=== PATIENT | male | born 1935 | race Caucasian/White ===

== ENCOUNTER 2021-05-08 12:36 | Inpatient (IN) | payer OTHER ==
[2021-05-08 12:51] VITALS: BMI 22.1
[2021-05-08 13:34] LABS: BASO % 0.8 % (0-2.0); EOS % 1.9 % (0-4.5); HEMATOCRIT 30.8 % (35.4-49); HEMOGLOBIN 9.7 GM/dL (11.7-16.9); LYMPH % 8.4 % (8-40); MCHC 31.5 g/dl (32.0-35.9); MEAN CELL VOLUME 95.3 fl (80-96); MEAN PLT VOLUME 9.8 fl (7.5-11.1); MONO % 5.9 % (3.8-10.2); PLATELET COUNT 292 10^3/uL (134-434); RBC 3.23 M/mm3 (4.00-5.60); RDW 17.2 % (11.9-15.9)
[2021-05-08 13:40] LABS: VENOUS PCO2 43.1 mmHg (38-52); VENOUS PH 7.354 (7.310-7.410)
[2021-05-08 13:47] LABS: INR 0.97 (0.83-1.09); PROTHROMBIN TIME (PATIENT) 11.8 SEC (9.7-13.0)
[2021-05-08 13:50] LABS: ACTIVATED PTT 31.8 SECONDS (25.2-36.5)
[2021-05-08 13:51] LABS: CHLORIDE 119 mmol/L (98-107); SODIUM 149 mmol/L (136-145)
[2021-05-08 13:53] LABS: ALBUMIN 2.6 g/dl (3.4-5.0); ANION GAP 3 MMOL/L (8-16); BLOOD UREA NITROGEN 29.5 mg/dL (7-18); CALCIUM 10.4 mg/dL (8.5-10.1); CO2 27 mmol/L (21-32); GLUCOSE,RANDOM 117 mg/dL (74-106)
[2021-05-08 13:57] LABS: CREATININE 1.2 mg/dL (0.55-1.3); SGOT/AST 23 U/L (15-37)
[2021-05-08 13:58] LABS: BILIRUBIN,TOTAL 0.2 mg/dL (0.2-1); TOT PROT 6.2 g/dl (6.4-8.2)
[2021-05-08 13:59] LABS: ALK PHOS 120 U/L (45-117)
[2021-05-08 14:33] LABS: SGPT/ALT 7 U/L (13-61)
[2021-05-08 16:58] LABS: EPI CELLS >36 /uL (0-25.1); HYALINE CASTS 3 /uL (0-3.1); URINE APPEARANCE CLEAR; URINE BACTERIA 85 /uL (0-1359); URINE BILIRUBIN NEGATIVE (NEGATIVE); URINE COLOR YELLOW; URINE GLUCOSE (UA) NEGATIVE (NEGATIVE); URINE KETONE NEGATIVE (NEGATIVE); URINE LEUK ESTERASE 1+ (NEGATIVE); URINE NITRITE NEGATIVE (NEGATIVE); URINE PROTEIN NEGATIVE (NEGATIVE); URINE RBC 10 /uL (0-23.9); URINE WBC 33 /uL (0-25.8)
[2021-05-08] MEDS ORDERED: DEXTROSE 5%-WATER - 1,000 ML IV SCH (20:15)
[2021-05-09] MEDS ORDERED: CARBIDOPA/LEVODOPA 25/100 TABLET (FP) PEG SCH (06:00)
[2021-05-09] MEDS ORDERED: ALBUTEROL SO4 0.083% IH SOL 2.5 MG/3 ML VIAL.NEB. NEB PRN (06:07)
[2021-05-09] MEDS ORDERED: LEVOTHYROXINE NA 50 MCG TABLET (FP) PO SCH (07:00)
[2021-05-09 08:08] LABS: BASO % 1.1 % (0-2.0); HEMATOCRIT 32.6 % (35.4-49); HEMOGLOBIN 10.2 GM/dL (11.7-16.9); LYMPH % 7.3 % (8-40); MCH 29.7 pg (25.7-33.7); MCHC 31.2 g/dl (32.0-35.9); MEAN CELL VOLUME 95.2 fl (80-96); MEAN PLT VOLUME 9.6 fl (7.5-11.1); MONO % 5.7 % (3.8-10.2); NEUT % 83.9 % (42.8-82.8); PLATELET COUNT 352 10^3/uL (134-434); RBC 3.42 M/mm3 (4.00-5.60); RDW 17.1 % (11.9-15.9); WHITE BLOOD COUNT 11.3 K/mm3 (4.0-10.0)
[2021-05-09 08:35] LABS: CALCIUM 11.1 mg/dL (8.5-10.1)
[2021-05-09 08:36] LABS: ALBUMIN 3.1 g/dl (3.4-5.0); BLOOD UREA NITROGEN 23.4 mg/dL (7-18); MAGNESIUM 2.7 mg/dL (1.8-2.4)
[2021-05-09 08:39] LABS: CREATININE 0.9 mg/dL (0.55-1.3)
[2021-05-09 08:40] LABS: BILIRUBIN,TOTAL 0.3 mg/dL (0.2-1)
[2021-05-09] MEDS: HEPARIN NA (PORCINE) 5,000 UNITS/ML 1ML VIAL SQ SCH ×2 (09:33→22:13)
[2021-05-09] MEDS ORDERED: carBAMazepine 100 MG TAB.CHEW PEG SCH (10:00)
[2021-05-09] MEDS ORDERED: DOCUSATE NA 100 MG/10 ML UNIT-DOSE CUPS PEG SCH (10:00)
[2021-05-09] MEDS ORDERED: AZITHROMYCIN IVPB 500 MG in DEXTROSE 5%-WATER - 250 ML IVPB SCH (10:30)
[2021-05-09] MEDS ORDERED: ACETAMINOPHEN 1000 MG/100 ML VIAL (NON FORMULARY) IVPB PRN (10:39)
[2021-05-09] MEDS ORDERED: DEXTROSE 5%-WATER - 1,000 ML IV SCH (10:46)
[2021-05-09] MEDS ORDERED: cefTRIAXone SODIUM 1 GM VIAL ONE (11:06)
[2021-05-09] MEDS ORDERED: DEXTROSE 5%-WATER - 50 ML IVPB ONE (11:06)
[2021-05-09] MEDS: CEFTRIAXONE 1 GM in DEXTROSE 5%-WATER - 50 ML IVPB SCH (11:32)
[2021-05-09] MEDS: AZITHROMYCIN IVPB 500 MG/250 ML BAG IVPB SCH (11:33)
[2021-05-09] MEDS ORDERED: DEXTROSE 5%-WATER - 1,000 ML IV ONE (12:30)
[2021-05-09] MEDS ORDERED: QUEtiapine FUMARATE 100 MG TABLET (FP) PEG SCH (14:00)
[2021-05-09] MEDS: ALBUTEROL SO4 2.5/IPRATROPIUM 0.5 INH SOL 3 ML VIAL.NEB. NEB SCH ×3 (15:04→21:05)
[2021-05-09] MEDS ORDERED: QUEtiapine FUMARATE 100 MG TABLET (FP) PEG ONE (21:23)
[2021-05-09] MEDS ORDERED: QUEtiapine FUMARATE 50 MG TABLET ONE (22:11)
[2021-05-09] MEDS: DEXTROSE 5%-WATER - 1,000 ML IV SCH (22:24)
[2021-05-10] MEDS: DEXTROSE 5%-WATER - 1,000 ML IV SCH ×2 (06:35→21:28)
[2021-05-10] MEDS: ALBUTEROL SO4 2.5/IPRATROPIUM 0.5 INH SOL 3 ML VIAL.NEB. NEB SCH ×4 (07:26→20:18)
[2021-05-10] MEDS ORDERED: cefTRIAXone SODIUM 1 GM VIAL ONE (08:59)
[2021-05-10] MEDS ORDERED: DEXTROSE 5%-WATER - 50 ML IVPB ONE (08:59)
[2021-05-10] MEDS: HEPARIN NA (PORCINE) 5,000 UNITS/ML 1ML VIAL SQ SCH ×2 (09:05→21:25)
[2021-05-10] MEDS: CEFTRIAXONE 1 GM in DEXTROSE 5%-WATER - 50 ML IVPB SCH (09:09)
[2021-05-10] MEDS: AZITHROMYCIN IVPB 500 MG/250 ML BAG IVPB SCH (09:11)
[2021-05-10] MEDS ORDERED: ACETAMINOPHEN 325 MG TABLET (FP) NR PRN (09:37)
[2021-05-10] MEDS ORDERED: LEVOTHYROXINE SODIUM 100 MCG VIAL IVPUSH SCH (10:00)
[2021-05-10] MEDS ORDERED: LITHIUM CARBONATE 300 MG CAPSULE PO SCH (10:00)
[2021-05-10] MEDS: MULTIVIT-MINERALS ORAL LIQUID PEG SCH (10:43)
[2021-05-10] MEDS: FAMOTIDINE 40 MG/5 ML ORAL SUSPENSION PEG SCH (10:43)
[2021-05-10] MEDS: LOSARTAN POTASSIUM 50 MG TABLET PEG SCH (10:54)
[2021-05-10 11:49] LABS: BASO % 0.9 % (0-2.0); EOS % 3.1 % (0-4.5); HEMATOCRIT 33.7 % (35.4-49); HEMOGLOBIN 10.7 GM/dL (11.7-16.9); LYMPH % 17.7 % (8-40); MCH 30.1 pg (25.7-33.7); MCHC 31.7 g/dl (32.0-35.9); MEAN CELL VOLUME 94.9 fl (80-96); MEAN PLT VOLUME 9.4 fl (7.5-11.1); MONO % 6.4 % (3.8-10.2); NEUT % 71.9 % (42.8-82.8); PLATELET COUNT 266 10^3/uL (134-434); RBC 3.55 M/mm3 (4.00-5.60); RDW 16.9 % (11.9-15.9); WHITE BLOOD COUNT 6.9 K/mm3 (4.0-10.0)
[2021-05-10 12:13] LABS: CALCIUM 11.1 mg/dL (8.5-10.1)
[2021-05-10 12:14] LABS: BLOOD UREA NITROGEN 12.6 mg/dL (7-18)
[2021-05-10 12:17] LABS: CREATININE 0.7 mg/dL (0.55-1.3)
[2021-05-10 12:19] LABS: BILIRUBIN,TOTAL 0.2 mg/dL (0.2-1); TOT PROT 6.8 g/dl (6.4-8.2)
[2021-05-10] MEDS: CARBIDOPA/LEVODOPA 25/100 TABLET (FP) PEG SCH ×2 (13:45→21:27)
[2021-05-11] MEDS: LEVOTHYROXINE NA 50 MCG TABLET (FP) PEG SCH (06:17)
[2021-05-11] MEDS: CARBIDOPA/LEVODOPA 25/100 TABLET (FP) PEG SCH ×3 (06:18→21:03)
[2021-05-11 07:39] LABS: ALBUMIN 2.8 g/dl (3.4-5.0); BLOOD UREA NITROGEN 9.8 mg/dL (7-18); CALCIUM 10.5 mg/dL (8.5-10.1)
[2021-05-11 07:43] LABS: CREATININE 0.6 mg/dL (0.55-1.3)
[2021-05-11 07:44] LABS: BASO % 0.7 % (0-2.0); BILIRUBIN,TOTAL 0.2 mg/dL (0.2-1); EOS % 1.6 % (0-4.5); LYMPH % 9.8 % (8-40); MCH 30.1 pg (25.7-33.7); MCHC 32.1 g/dl (32.0-35.9); MEAN CELL VOLUME 93.9 fl (80-96); MEAN PLT VOLUME 9.7 fl (7.5-11.1); MONO % 5.7 % (3.8-10.2); NEUT % 82.2 % (42.8-82.8); PLATELET COUNT 271 10^3/uL (134-434); RBC 3.31 M/mm3 (4.00-5.60); RDW 16.5 % (11.9-15.9); TOT PROT 6.5 g/dl (6.4-8.2); WHITE BLOOD COUNT 9.6 K/mm3 (4.0-10.0)
[2021-05-11] MEDS ORDERED: POTASSIUM CHLORIDE TABS 10 MEQ TABLET.ER (FP) PO ONE (08:02)
[2021-05-11] MEDS: ALBUTEROL SO4 2.5/IPRATROPIUM 0.5 INH SOL 3 ML VIAL.NEB. NEB SCH ×4 (08:10→20:18)
[2021-05-11] MEDS ORDERED: DEXTROSE 5%-WATER - 50 ML IVPB ONE (08:45)
[2021-05-11] MEDS ORDERED: cefTRIAXone SODIUM 1 GM VIAL ONE (08:45)
[2021-05-11] MEDS: CEFTRIAXONE 1 GM in DEXTROSE 5%-WATER - 50 ML IVPB SCH (09:26)
[2021-05-11] MEDS: FAMOTIDINE 40 MG/5 ML ORAL SUSPENSION PEG SCH (09:26)
[2021-05-11] MEDS: MULTIVIT-MINERALS ORAL LIQUID PEG SCH (09:27)
[2021-05-11] MEDS: HEPARIN NA (PORCINE) 5,000 UNITS/ML 1ML VIAL SQ SCH ×2 (09:27→21:03)
[2021-05-11] MEDS: LOSARTAN POTASSIUM 50 MG TABLET PEG SCH (09:27)
[2021-05-11] MEDS: LITHIUM CARBONATE 300 MG CAPSULE PEG SCH (09:27)
[2021-05-11] MEDS: DEXTROSE 5%-WATER - 1,000 ML IV SCH (09:53)
[2021-05-12] MEDS: CARBIDOPA/LEVODOPA 25/100 TABLET (FP) PEG SCH ×3 (05:54→22:22)
[2021-05-12] MEDS: LEVOTHYROXINE NA 50 MCG TABLET (FP) PEG SCH (06:02)
[2021-05-12 07:32] LABS: BASO % 0.4 % (0-2.0); EOS % 2.3 % (0-4.5); HEMATOCRIT 33.4 % (35.4-49); HEMOGLOBIN 10.9 GM/dL (11.7-16.9); MCH 30.2 pg (25.7-33.7); MCHC 32.6 g/dl (32.0-35.9); MEAN CELL VOLUME 92.7 fl (80-96); MEAN PLT VOLUME 8.9 fl (7.5-11.1); MONO % 6.7 % (3.8-10.2); NEUT % 77.6 % (42.8-82.8); PLATELET COUNT 262 10^3/uL (134-434); RBC 3.61 M/mm3 (4.00-5.60); RDW 16.8 % (11.9-15.9); WHITE BLOOD COUNT 8.1 K/mm3 (4.0-10.0)
[2021-05-12] MEDS: ALBUTEROL SO4 2.5/IPRATROPIUM 0.5 INH SOL 3 ML VIAL.NEB. NEB SCH ×4 (07:50→20:15)
[2021-05-12 08:14] LABS: CALCIUM 10.7 mg/dL (8.5-10.1)
[2021-05-12 08:15] LABS: ALBUMIN 2.8 g/dl (3.4-5.0); BLOOD UREA NITROGEN 8.3 mg/dL (7-18)
[2021-05-12 08:18] LABS: CREATININE 0.6 mg/dL (0.55-1.3)
[2021-05-12 08:19] LABS: BILIRUBIN,TOTAL 0.4 mg/dL (0.2-1)
[2021-05-12 08:20] LABS: TOT PROT 6.7 g/dl (6.4-8.2)
[2021-05-12] MEDS ORDERED: DEXTROSE 5%-WATER - 50 ML IVPB ONE (09:05)
[2021-05-12] MEDS ORDERED: PT OWN MED DRAWER 7, Y5N ONE (09:05)
[2021-05-12] MEDS ORDERED: cefTRIAXone SODIUM 1 GM VIAL ONE (09:05)
[2021-05-12] MEDS: ACETAMINOPHEN 650 MG/20.3 ML ORAL SOLUTION (CUPS) GT PRN (09:14)
[2021-05-12] MEDS: LOSARTAN POTASSIUM 50 MG TABLET PEG SCH (09:14)
[2021-05-12] MEDS: MULTIVIT-MINERALS ORAL LIQUID PEG SCH (09:15)
[2021-05-12] MEDS: HEPARIN NA (PORCINE) 5,000 UNITS/ML 1ML VIAL SQ SCH ×2 (09:15→22:23)
[2021-05-12] MEDS: FAMOTIDINE 40 MG/5 ML ORAL SUSPENSION PEG SCH (09:15)
[2021-05-12] MEDS: CEFTRIAXONE 1 GM in DEXTROSE 5%-WATER - 50 ML IVPB SCH (09:16)
[2021-05-12] MEDS: VANCOMYCIN 1 GRAM (PRE-DOCKED) 1,000 MG/250 ML BAG IVPB SCH (22:21)
[2021-05-13] MEDS: LEVOTHYROXINE NA 50 MCG TABLET (FP) PEG SCH (06:31)
[2021-05-13] MEDS: CARBIDOPA/LEVODOPA 25/100 TABLET (FP) PEG SCH ×3 (06:31→21:07)
[2021-05-13] MEDS: ALBUTEROL SO4 2.5/IPRATROPIUM 0.5 INH SOL 3 ML VIAL.NEB. NEB SCH ×4 (08:00→20:00)
[2021-05-13] MEDS ORDERED: cefTRIAXone SODIUM 1 GM VIAL ONE (09:51)
[2021-05-13] MEDS ORDERED: DEXTROSE 5%-WATER - 50 ML IVPB ONE (09:51)
[2021-05-13] MEDS: VANCOMYCIN 1 GRAM (PRE-DOCKED) 1,000 MG/250 ML BAG IVPB SCH ×2 (10:13→21:04)
[2021-05-13] MEDS: LOSARTAN POTASSIUM 50 MG TABLET PEG SCH (10:14)
[2021-05-13] MEDS: MULTIVIT-MINERALS ORAL LIQUID PEG SCH (10:14)
[2021-05-13] MEDS: FAMOTIDINE 40 MG/5 ML ORAL SUSPENSION PEG SCH (10:14)
[2021-05-13] MEDS: HEPARIN NA (PORCINE) 5,000 UNITS/ML 1ML VIAL SQ SCH ×2 (10:14→21:05)
[2021-05-13] MEDS: CEFTRIAXONE 1 GM in DEXTROSE 5%-WATER - 50 ML IVPB SCH (12:02)
[2021-05-13] MEDS: ACETAMINOPHEN 650 MG/20.3 ML ORAL SOLUTION (CUPS) GT PRN (21:06)
[2021-05-14] MEDS: LEVOTHYROXINE NA 50 MCG TABLET (FP) PEG SCH (06:02)
[2021-05-14] MEDS: CARBIDOPA/LEVODOPA 25/100 TABLET (FP) PEG SCH ×3 (06:03→21:57)
[2021-05-14] MEDS: ALBUTEROL SO4 2.5/IPRATROPIUM 0.5 INH SOL 3 ML VIAL.NEB. NEB SCH (07:33)
[2021-05-14 08:14] LABS: BASO % 1.2 % (0-2.0); EOS % 4.1 % (0-4.5); HEMATOCRIT 31.4 % (35.4-49); HEMOGLOBIN 10.1 GM/dL (11.7-16.9); LYMPH % 14.3 % (8-40); MCH 30.1 pg (25.7-33.7); MCHC 32.3 g/dl (32.0-35.9); MEAN CELL VOLUME 93.4 fl (80-96); MEAN PLT VOLUME 9.6 fl (7.5-11.1); MONO % 6.5 % (3.8-10.2); NEUT % 73.9 % (42.8-82.8); PLATELET COUNT 248 10^3/uL (134-434); RBC 3.36 M/mm3 (4.00-5.60); RDW 16.7 % (11.9-15.9); WHITE BLOOD COUNT 7.3 K/mm3 (4.0-10.0)
[2021-05-14 08:23] LABS: CALCIUM 10.8 mg/dL (8.5-10.1)
[2021-05-14 08:24] LABS: ALBUMIN 2.8 g/dl (3.4-5.0); BLOOD UREA NITROGEN 11.1 mg/dL (7-18)
[2021-05-14 08:27] LABS: CREATININE 0.6 mg/dL (0.55-1.3); PHOSPHOROUS 3.2 mg/dL (2.5-4.9); TOT PROT 6.4 g/dl (6.4-8.2)
[2021-05-14 08:29] LABS: BILIRUBIN,TOTAL 0.1 mg/dL (0.2-1)
[2021-05-14] MEDS: VANCOMYCIN 1 GRAM (PRE-DOCKED) 1,000 MG/250 ML BAG IVPB SCH ×2 (09:40→20:07)
[2021-05-14] MEDS: LOSARTAN POTASSIUM 50 MG TABLET PEG SCH (09:41)
[2021-05-14] MEDS: LITHIUM CARBONATE 300 MG CAPSULE PEG SCH (09:41)
[2021-05-14] MEDS: MULTIVIT-MINERALS ORAL LIQUID PEG SCH (09:41)
[2021-05-14] MEDS: HEPARIN NA (PORCINE) 5,000 UNITS/ML 1ML VIAL SQ SCH ×2 (09:41→21:57)
[2021-05-14] MEDS: FAMOTIDINE 40 MG/5 ML ORAL SUSPENSION PEG SCH (09:41)
[2021-05-15] MEDS: CARBIDOPA/LEVODOPA 25/100 TABLET (FP) PEG SCH ×3 (05:29→23:26)
[2021-05-15] MEDS: LEVOTHYROXINE NA 50 MCG TABLET (FP) PEG SCH (06:18)
[2021-05-15 08:26] LABS: BLOOD UREA NITROGEN 10.6 mg/dL (7-18); CALCIUM 10.7 mg/dL (8.5-10.1)
[2021-05-15 08:29] LABS: CREATININE 0.6 mg/dL (0.55-1.3)
[2021-05-15] MEDS: HEPARIN NA (PORCINE) 5,000 UNITS/ML 1ML VIAL SQ SCH ×2 (09:08→23:26)
[2021-05-15] MEDS: LOSARTAN POTASSIUM 50 MG TABLET PEG SCH (09:09)
[2021-05-15] MEDS: FAMOTIDINE 40 MG/5 ML ORAL SUSPENSION PEG SCH (09:09)
[2021-05-15] MEDS: LITHIUM CARBONATE 300 MG CAPSULE PEG SCH (09:09)
[2021-05-15] MEDS: MULTIVIT-MINERALS ORAL LIQUID PEG SCH (09:09)
[2021-05-15] MEDS: VANCOMYCIN 1 GRAM (PRE-DOCKED) 1,000 MG/250 ML BAG IVPB SCH (09:14)
[2021-05-15] MEDS: SULFAMETHOXAZOLE/TRIMETHOPRIM 800MG/160MG D.S. TABLET PO SCH ×2 (11:55→23:26)
[2021-05-16] MEDS: LEVOTHYROXINE NA 50 MCG TABLET (FP) PEG SCH (06:36)
[2021-05-16] MEDS: CARBIDOPA/LEVODOPA 25/100 TABLET (FP) PEG SCH (06:36)
[2021-05-16] MEDS ORDERED: PT OWN MED DRAWER 7, Y5N ONE (09:57)
[2021-05-16] MEDS: SULFAMETHOXAZOLE/TRIMETHOPRIM 800MG/160MG D.S. TABLET PO SCH (10:00)
[2021-05-16] MEDS: LOSARTAN POTASSIUM 50 MG TABLET PEG SCH (10:00)
[2021-05-16] MEDS: FAMOTIDINE 40 MG/5 ML ORAL SUSPENSION PEG SCH (10:00)
[2021-05-16] MEDS: LITHIUM CARBONATE 300 MG CAPSULE PEG SCH (10:01)
[2021-05-16] MEDS: MULTIVIT-MINERALS ORAL LIQUID PEG SCH (10:05)
[2021-05-16 11:37] VITALS: BP 136/83; PULSE 73; TEMP 98.4
== END 2021-05-16 12:40 | DRG 177 ==
LOC: JER 12:36 → JERBED 19:11 → J7W 05-09 02:39 → OBSVTOIN 05-11 16:34 → J7W 05-12 18:34
PROVIDERS: ADMIT Internal Medicine; ATTEND Family Medicine
DX: J69.0 Pneumonitis due to inhalation of food and vomit (principal); R53.2 Functional quadriplegia; G93.41 Metabolic encephalopathy; E87.0 Hyperosmolality and hypernatremia; J44.9 Chronic obstructive pulmonary disease, unspecified; I10 Essential (primary) hypertension; E78.5 Hyperlipidemia, unspecified; G20 Parkinson's disease; K21.9 Gastro-esophageal reflux disease without esophagitis; I25.10 Atherosclerotic heart disease of native coronary artery without angina pectoris; F20.9 Schizophrenia, unspecified; I95.9 Hypotension, unspecified; E83.52 Hypercalcemia; D72.829 Elevated white blood cell count, unspecified
CPT/HCPCS: 36415; 70450-TC; 71045-TC-FY; 71250-TC; 74230-TC-FY; 80048; 80053; 80178; 81003; 82306; 82310; 82533; 82550; 82607; 82652; 82728; 82803; 83540; 83550; 83735; 83930; 83935; 83970; 84100; 84300; 84439; 84443; 84484; 85025; 85610; 85730; 86780; 86850; 86900; 86901; 87040; 87070; 87186; 87205; 87899; 92611-GN; 93005; 93010; 94640; 97161-GP; 99291; C9803; G0378; J1644; U0003; U0005